=== PATIENT | male | born 1990 | race Caucasian/White ===

== ENCOUNTER 2022-02-12 11:16 | Emergency (ER) | payer OTHER | END 2022-02-12 13:25 | disposition home or self-care (01) | LOC: FER 11:16 | DX: S66.911A Strain of unspecified muscle, fascia and tendon at wrist and hand level, right hand, initial encounter (principal); V49.40XA Driver injured in collision with unspecified motor vehicles in traffic accident, initial encounter; Z28.311 Partially vaccinated for COVID-19 | CPT/HCPCS: 73110; 73130 ==